=== PATIENT | female | born 2000 | race African-American/Black ===

== ENCOUNTER 2019-09-24 11:51 | Outpatient (CLI) | payer OTHER ==
--- NOTE | 2019-09-24 13:11 | RAD ---
PA AND LATERAL CHEST: HISTORY: Shortness of breath and chest pain. FINDINGS: The cardiomediastinum is normal. The lungs are expanded and clear. The bony thorax is normal. IMPRESSION: Normal examination. POS: [facility]
== END 2019-09-24 11:52 | disposition home or self-care (01) ==
LOC: SCSRAD 11:51
PROVIDERS: ATTEND Family Medicine
DX: R06.02 Shortness of breath (principal)
CPT/HCPCS: 71046

== ENCOUNTER 2021-03-20 15:06 | Outpatient (CLI) | payer OTHER | END 2021-03-20 15:07 | disposition home or self-care (01) | LOC: SCSRAD 15:06 | PROVIDERS: ATTEND Family Medicine | DX: M54.6 Pain in thoracic spine (principal); M43.9 Deforming dorsopathy, unspecified | CPT/HCPCS: 72072 ==